=== PATIENT | male | born 1975 | race Caucasian/White ===

== ENCOUNTER 2018-04-04 11:44 | Day surgery (SDC) | payer OTHER ==
[~2018-04-04 11:44] MED LIST: PROPOFOL 200 MG INJ; ROCURONIUM 50 MG INJ
[2018-04-04] MEDS ORDERED: MIDAZOLAM 1 MG/ML 2 ML INJ (13:40)
[2018-04-04] MEDS ORDERED: SOD CHLORIDE 0.9% 1,000 ML IV (14:05)
[2018-04-04] MEDS ORDERED: POLYMYXIN/BACITRACIN 1L IRRIG ×2 (14:19→17:32)
[2018-04-04] MEDS ORDERED: ROPIVACAINE 0.5 % 30 ML VIAL (14:19)
[2018-04-04] MEDS ORDERED: OXYCODONE/ACETAMINOPHEN (5/325) TAB PO ×2 (14:30→19:30)
[2018-04-04] MEDS ORDERED: morphine 2 MG INJ IV (14:30)
[2018-04-04] MEDS ORDERED: SUCCINYLCHOLINE CHLORIDE 100 MG/5 ML SYG IV (14:47)
[2018-04-04] MEDS ORDERED: PROPOFOL 20 ML (14:47)
[2018-04-04] MEDS ORDERED: ROCURONIUM 50 MG INJ ×2 (14:47→18:01)
[2018-04-04] MEDS ORDERED: LIDOCAINE 2% (SDV) 5 ML INJ (14:47)
[2018-04-04] MEDS ORDERED: CEFAZOLIN 1 GM INJ (14:52)
[2018-04-04] MEDS ORDERED: FAMOTIDINE 20 MG INJ (15:07)
[2018-04-04] MEDS ORDERED: DEXAMETHASONE 4 MG/ML 1 ML INJ (15:07)
[2018-04-04] MEDS ORDERED: ONDANSETRON 4 MG INJ (15:07)
[2018-04-04] MEDS ORDERED: HYDROmorphONE 2 MG/ML SYG (18:10)
[2018-04-04] MEDS ORDERED: SUGAMMADEX SODIUM 200 MG/2 ML VIAL IV (18:18)
[2018-04-04] MEDS: ROPIVACAINE 0.5 % 30 ML VIAL (18:30)
[2018-04-04] MEDS: ONDANSETRON 4 MG INJ IV ×2 (19:26→20:12)
[2018-04-04] MEDS ORDERED: ONDANSETRON 4 MG INJ IV (19:30)
[2018-04-04] MEDS ORDERED: MEPERIDINE 25 MG INJ IV (19:30)
[2018-04-04] MEDS ORDERED: PROCHLORPERAZINE 10 MG INJ IV (19:30)
[2018-04-04] MEDS ORDERED: HYDROmorphONE 1 MG/5 ML IV SYRINGE IV ×2 (19:30)
[2018-04-04] MEDS ORDERED: DIPHENHYDRAMINE 50 MG INJ IV (19:30)
[2018-04-04] MEDS ORDERED: FENTAnyl 50 MCG/ML VIAL IV ×3 (19:30)
[2018-04-04] MEDS: HYDROmorphONE 1 MG/5 ML IV SYRINGE IV ×2 (20:00→20:08)
[2018-04-04] MEDS: OXYCODONE/ACETAMINOPHEN (5/325) TAB PO (20:13)
== END 2018-04-04 21:10 | disposition home or self-care (01) ==
LOC: SDS 11:44
DX: S82.841A Displaced bimalleolar fracture of right lower leg, initial encounter for closed fracture (principal); X58.XXXA Exposure to other specified factors, initial encounter; M65.871 Other synovitis and tenosynovitis, right ankle and foot
CPT/HCPCS: 27814; 73610-RT